=== PATIENT | male | born 1980 | race Caucasian/White ===

== ENCOUNTER 2017-05-02 04:13 | Emergency (ER) | payer SELFPAY ==
[~2017-05-02] VITALS: Ht 175.3 cm; Wt 70.0 kg
[2017-05-02 04:14] VITALS: BP 129/82; PULSE 90; RESP 20; TEMP 98; O2SAT 97
[2017-05-02] MEDS ORDERED: MORPHINE SULFATE 8 MG/ML INJ IM ONE (05:00)
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
[2017-05-02] MEDS ORDERED: SULFAMETHOXAZOLE-TRIMETHOPRIM DS 800-160 MG TAB PO ONE (05:45)
[2017-05-02] MEDS ORDERED: CEPHALEXIN MONOHYDRATE 500 MG CAP PO ONE (05:45)
[2017-05-02] MEDS ORDERED: BACT800T5 PO (05:50)
[2017-05-02] MEDS ORDERED: CEPH-460 PO (05:50)
[2017-05-02] MEDS ORDERED: HYDR-3533 PO (05:50)
[2017-05-02 06:39] VITALS: BP 117/65; PULSE 94; RESP 18; O2SAT 100
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
== END 2017-05-02 06:47 | disposition home or self-care (01) ==
LOC: NEPE 04:13
DX: S01.81XA Laceration without foreign body of other part of head, initial encounter (principal); L02.414 Cutaneous abscess of left upper limb; B95.62 Methicillin resistant Staphylococcus aureus infection as the cause of diseases classified elsewhere; F12.90 Cannabis use, unspecified, uncomplicated; F17.210 Nicotine dependence, cigarettes, uncomplicated; Y04.2XXA Assault by strike against or bumped into by another person, initial encounter; Y92.89 Other specified places as the place of occurrence of the external cause; Z88.0 Allergy status to penicillin
CPT/HCPCS: 10061; 12013; 70450; 70486; 72125; 86403; 87070; 87186; 96372; 99285; J2270